=== PATIENT | female | born 1955 | race Asian ===

== ENCOUNTER 2023-09-06 09:47 | Emergency (ER) | payer OTHER, MEDICAID ==
[~2023-09-06] VITALS: Ht 152.4 cm; Wt 77.0 kg
[2023-09-06] MEDS ORDERED: SODIUM CHLORIDE 0.9% 1,000 ML IV ONE (10:45)
[2023-09-06 11:32] LABS: Basophils # (auto) 0.1 10 ^3/uL (0-0.2); Basophils % (auto) 0.6 % (0.0-2.0); Eosinophils # (auto) 0.1 10 ^3/uL (0-0.8); Eosinophils % (auto) 0.4 % (0.0-7.0); Hematocrit 48.1 % (36.0-46.0); Hemoglobin 15.9 g/dL (12.2-16.2); Lymphocytes # (auto) 1.4 10 ^3/uL (0.4-5.4); Mean Corpuscular Hemoglobin 28.4 pg (28.0-32.0); Mean Corpuscular Hgb Conc. 33.1 g/dL (32.0-36.0); Mean Corpuscular Volume 85.8 fL (80.0-100.0); Monocytes # (auto) 1.1 10 ^3/uL (0-1.3); Monocytes % (auto) 6.3 % (0.0-12.0); Neutrophils # (auto) 15.3 10 ^3/uL (1.6-8.6); Neutrophils % (auto) 84.7 % (37.0-80.0); Red Cell Distribution Width 13.1 % (11.8-14.3)
[2023-09-06 11:50] LABS: Chloride 104 mmol/L (98-107); Potassium 4.2 mmol/L (3.5-5.1); Sodium 140 mmol/L (136-145)
[2023-09-06 11:51] LABS: Anion Gap 7 (5-15); Carbon Dioxide 29 mmol/L (20-30)
[2023-09-06 11:52] LABS: Calcium 9.7 mg/dL (8.5-10.1)
[2023-09-06 11:54] LABS: Urine Bacteria FEW /hpf (None Seen); Urine Blood Negative /uL (Negative); Urine Clarity Clear (Clear); Urine Color Yellow (Yellow); Urine Mucus FEW (None Seen); Urine Protein, UAD TRACE (Negative); Urine Specific Gravity 1.014 (1.001-1.035); Urine Urobilinogen Normal (Negative); Urine WBC 3 /hpf (0 - 5); Urine pH 7.5 (5.0-8.0)
[2023-09-06 11:57] LABS: BUN/Creatinine Ratio 15.1 (10.0-20.0); Blood Urea Nitrogen 13 mg/dL (9-23); Glucose 114 mg/dL (74-106)
[2023-09-06] MEDS ORDERED: ALBUTEROL SULF 2.5 MG/0.5ML(0.5%) NEB SOLN NEB ONE (12:15)
[2023-09-06] MEDS ORDERED: AZITHROMYCIN 500MG/ 250ML 250 ML IV ONE (12:15)
[2023-09-06] MEDS ORDERED: IPRATROPIUM BROM 0.5 MG/2.5ML INH SOL NEB ONE (12:15)
[2023-09-06] MEDS ORDERED: DEXT1SYP9 PO (15:15)
[2023-09-06] MEDS ORDERED: SPIR25TA PO (15:15)
[2023-09-06] MEDS ORDERED: DOXY100C PO (15:15)
[2023-09-06] MEDS ORDERED: FURO1TAB33 PO (15:15)
[2023-09-06 16:31] VITALS: BP 140/84; PULSE 75; RESP 19; TEMP 98.2; O2SAT 98
== END 2023-09-06 16:37 | disposition home or self-care (01) ==
LOC: EDBD 09:47 → ER 09:47
DX: R06.02 Shortness of breath (principal); D72.828 Other elevated white blood cell count; J81.1 Chronic pulmonary edema; E11.9 Type 2 diabetes mellitus without complications; I10 Essential (primary) hypertension; Z90.710 Acquired absence of both cervix and uterus; Z86.73 Personal history of transient ischemic attack (TIA), and cerebral infarction without residual deficits
CPT/HCPCS: 36415; 71045; 80048; 81001; 84484; 85025; 93005; 94640; 96361; 96365; 96366; 99285; J0456; J7030; J7644

== ENCOUNTER 2025-02-22 00:42 | Emergency (ER) | payer OTHER, MEDICAID ==
[~2025-02-22] VITALS: Ht 157.5 cm; Wt 72.6 kg
[~2025-02-22 00:42] MED LIST: DEXT1SYP9 PO; DOXY100C PO; FURO1TAB33 PO; SPIR25TA PO
[2025-02-22 01:20] VITALS: BP 173/104; RESP 17; TEMP 97.8; O2SAT 91
[2025-02-22] MEDS: NITROGLYCERIN 0.4 MG SL TAB SL ONE (01:37)
[2025-02-22 01:45] VITALS: PULSE 61
--- NOTE | 2025-02-22 01:45 | ED.PDOC ---
History of Present Illness HPI Comments 69-year-old female who is brought in by ambulance for complaint of nonradiating, left-sided chest pain. Patient endorses on sudden unprovoked onset of pain at around 11:00 p.m., last night. Only history of CVA, DM type II, and HTN. She denies having any shortness of breath, nausea, vomiting, fever, chills, further associated symptoms. Per EMS report, patient's vitals were stable and within normal limits, with the exception of patient being hypertensive and having a glucose of 229. Chief Complaint: Chest Pain Time Seen by MD: 01:30 Reviewed Notes: Nurses Notes, Transformer Mechanic Notes, Medications, Allergies Allergies: Coded Allergies: NO KNOWN ALLERGIES (Unverified , 09/06/23) Home Meds Active Scripts Dextromethorphan-Guaifenesin (Robitussin-Dm) 10 Ml Sr, 10 ML PO TID for 10 Days, #180 SYP Prov:PONCHO PATINO MD 09/06/23 Spironolactone (Aldactone) 25 Mg Tab, 1 TAB PO DAILY for 5 Days, #5 TAB 1 Refill Prov:PONCHO PATINO MD 09/06/23 Furosemide (Lasix) 20 Mg Tb, 1 TAB PO DAILY for 5 Days, #5 TAB 1 Refill Prov:PONCHO PATINO MD 09/06/23 Doxycycline Hyclate (Vibramycin) 100 Mg Cap, 1 CAP PO BID for 10 Days, #20 CAP Prov:PONCHO PATINO MD 09/06/23 Information Source: Patient, Emergency Med Personnel Mode of Arrival: EMS Severity: Moderate Timing: Hours Duration: Since onset Prehospital treatment: 12 Lead EKG, Accucheck (229), Qual Research Manager Past Medical History PAST MEDICAL HISTORY: CVA, DM (Type II), HTN Surgical History: Hysterectomy MACHINE TESTER History: No Pertinent MACHINE TESTER History Family History Family History: Unknown Social History Smoker: Non-Smoker Alcohol: Denies ETOH Use Drugs: Denies Drug Use Lives In: Home All Other Systems: Reviewed and Negative (Comprehensive systems review obtained and negative except for what is stated in the HPI.) Physical Exam General Appearance: No Apparent Distress, Normal HEENT: Normal ENT Inspection, Pharynx Normal, TMs Normal Neck: Full Range of Motion, Non-Tender, Normal, Normal Inspection Respiratory: Chest Non-Tender, Lungs Clear, No Accessory Muscle Use, No Respiratory Distress, Normal Breath Sounds Cardiovascular: No Edema, No JVD, No Murmur, No Gallop, Normal Peripheral Pulses, Regular Rate/Rhythm Breast Exam: Deferred Gastrointestinal: No Organomegaly, Non Tender, No Pulsatile Mass, Normal Bowel Sounds, Soft Genitalia: Deferred Pelvic: Deferred Rectal: Deferred Extremities: No calf tenderness, Normal capillary refill, Normal inspection, Normal range of motion, Non-tender, No pedal edema Musculoskeletal : Apperance: Normal Neurologic: Alert, court recorder II-XII nml as Tested, No Motor Deficits, Normal Affect, Normal Mood, No Sensory Deficits Cerebellar Function: Normal Reflexes: Normal Skin: Dry, Normal Color, Warm Lymphatic: No Adenopathy Was a procedure done? Was a procedure done?: No EKG EKG #1: Pulse Rate (adult): 72 Rosie: Normal Cardiac Rhythm: NSR Block: None Hypertrophy: None ST: Normal EKG #2: Pulse Rate (adult): 61 Rosie: Normal Cardiac Rhythm: NSR Block: None Hypertrophy: None ST: Normal Differential Dx Considerations may include: UT, PE, ACS, URI, pneumonia, anxiety, angina, viral syndrome, costochondritis, among others X-Ray, Labs, Meds, VS Vital Signs Date Time Temp Pulse Resp B/P (MAP) Pulse Ox O2 Delivery O2 Flow Rate FiO2 02/22/25 01:45 61 02/22/25 01:40 61 02/22/25 01:37 173/104 02/22/25 01:20 97.8 67 17 173/104 (127) 91 97.8 02/22/25 00:53 98.6 72 16 172/72 (105) 95 98.6 02/22/25 00:45 72 Lab Test 02/22/25 02:48 02/22/25 02:30 02/22/25 01:58 Range/Units Troponin I High Sensitivity Pending 8 </=34 ng/L Urine Color Colorless Yellow Urine Clarity Clear Clear Urine pH 7.0 5.0-9.0 Urine Specific [place] 1.008 1.001-1.035 Urine Protein Negative Negative Urine Ketones Negative Negative Urine Blood Negative Negative /uL Urine Nitrite Negative Negative Urine Bilirubin Negative Negative Urine Urobilinogen Normal Negative mg/dL Urine Leukocyte Esterase Trace Negative /uL Urine RBC 1 0 - 4 /hpf Urine Microscopic WBC 2 0-5 /HPF Urine Squamous Epithelial Cells Few <5 /hpf Urine Bacteria Mod H None Seen /hpf Urine Glucose 4+ H Normal mg/dL White Blood Count 9.2 4.4-10.8 10^3/uL Red Blood Count 5.63 H 4.0-5.20 10^6/uL Hemoglobin 16.2 12.2-16.2 g/dL Hematocrit 48.2 H 36.0-46.0 % Mean Corpuscular Volume 85.6 80.0-100.0 fL Mean Corpuscular Hemoglobin 28.8 28.0-32.0 pg Mean Corpuscular Hemoglobin Concent 33.6 32.0-36.0 g/dL Red Cell Distribution Width 14.4 H 11.8-14.3 % Platelet Count 278 140-450 10^3/uL Mean Platelet Volume 8.2 6.9-10.8 fL Neutrophils (%) (Auto) 63.2 37.0-80.0 % Lymphocytes (%) (Auto) 25.1 10.0-50.0 % Monocytes (%) (Auto) 7.3 0.0-12.0 % Eosinophils (%) (Auto) 3.7 0.0-7.0 % Basophils (%) (Auto) 0.7 0.0-2.0 % Neutrophils # (Auto) 5.8 1.6-8.6 10 ^3/uL Lymphocytes # (Auto) 2.3 0.4-5.4 10 ^3/uL Monocytes # (Auto) 0.7 0-1.3 10 ^3/uL Eosinophils # (Auto) 0.3 0-0.8 10 ^3/uL Basophils # (Auto) 0.1 0-0.2 10 ^3/uL Nucleated Red Blood Cells 0.2 % Sodium Level 145 136-145 mmol/L Potassium Level 4.4 3.5-5.1 mmol/L Chloride Level 106 98-107 mmol/L Carbon Dioxide Level 28 20-31 mmol/L Anion Gap 11 5-15 Blood Urea Nitrogen 13 9-23 mg/dL Creatinine 0.84 0.550-1.02 mg/dL Glomerular Filtration Rate Calc 76 >90 mL/min BUN/Creatinine Ratio 15.5 10.0-20.0 Serum Glucose 270 H 74-106 mg/dL Calcium Level 9.5 8.7-10.4 mg/dL B-Type Natriuretic Peptide 29.62 0-100 pg/mL Current Medications Medications (Trade) Dose Ordered Sig/Tomasa Route Start Time Stop Time Status Last Admin Nitroglycerin (Ntrostat Sublingual) 0.4 mg ONCE ONCE SL 02/22/25 01:15 02/22/25 01:16 DC 02/22/25 01:37 Time of 1ST Reevaluation: 01:50 Reevaluation 1ST: Unchanged Patient Education/Counseling: Diagnosis, Treatment Family Education/Counseling: No Family Present Additional Information Previous visits reviewed: September 06, 2023 encounter for shortness of breath The following tests were ordered, and results were reviewed by me: Troponin, urinalysis, chest x-ray, CBC, BMP, BNP, EKG Additional Information was gathered from interviewing the following independent historians: EMS I reviewed and agreed with the following test results read by other providers: Chest x-ray I discussed treatment and results with medical personnel and: patient SEPSIS Sepsis Screen Date sepsis recognized/suspect: Feb 22, 2025 Time Sepsis recognized/suspect: 56 Recent Procedure: No On Antibiotic Therapy: No Respiratory Rate >20: No Heart Rate >90: No Temp<36 C (96.8 F) or >38.3 C: No SBP <90 or MAP <65 mmHG: No New Acute Mental Status Change: No Is the patient on CPAP, BIPAP,: No Physician Orders Electrocardigram (02/22/25 04:12) Chest Portable (02/22/25 01:14) Troponin-I Hs (02/22/25 02:14) Troponin-I Hs (02/22/25 04:14) Clonidine Hcl Tablet (Catapres Tablet) (02/22/25 03:15) Vital Signs Date Time Temp Pulse Resp B/P (MAP) Pulse Ox O2 Delivery O2 Flow Rate FiO2 02/22/25 01:45 61 02/22/25 01:40 61 02/22/25 01:37 173/104 02/22/25 01:20 97.8 67 17 173/104 (127) 91 97.8 02/22/25 00:53 98.6 72 16 172/72 (105) 95 98.6 02/22/25 00:45 72 Laboratory Tests Test 02/22/25 01:58 White Blood Count 9.2 10^3/uL (4.4-10.8) Medications Medications Dose Ordered Sig/Tomasa Route Start Time Stop Time Status Last Admin Dose Admin Nitroglycerin 0.4 mg ONCE ONCE SL 02/22/25 01:15 02/22/25 01:16 DC 02/22/25 01:37 Departure 1 Departure Time of Disposition: 03:13 (Patient presented with chest pain that was concerning for possible STEMI, ACS, PE, Pneumonia, Muscle Strain, COPD, Dissection. Data: 1. I ordered and reviewed the result of at least 3 labs including a CBC, BMP, and Troponin. 2. I independently interpreted the following tests: EKG which shows normal sinus rhythm and Chest X-ray which shows a benign chest.Risk:This patient presented with a high risk of morbidity due to further diagnostic testing or treatment and may suffer from an acute cardiac or respiratory disorder. After review of all the data patient is unlikely to have a pe , dissection, and is low risk for acs. Patient is stable at this time.Workup so far is benign and patient will be discharged with outpatient followup. ) Impression: Primary Impression: Acute chest pain Disposition: HOME / SELF CARE / HOMELESS Condition: Stable Additional Instructions: You presented today with chest pain. Your workup today was benign including labs, troponin, EKG, chest x-ray. Your pain may be from musculoskeletal strain, acid reflux, anxiety, or many other factors. It is important to follow up with your regular doctor within 1 week. If your symptoms worsen or you have any other concerns please return to the emergency room. Critical Care Note Critical Care Time?: No Stability Stability form required: No Heart Score Heart Score: Heart Score Response (Comments) Value History Slightly Suspicious 0 EKG Normal 0 Age >65 2 Risk Factors 1 or 2 risk factors 1 Troponin Normal limit 0 Total 3 I personally scribed for TERRI BALDERAS MD ([email or web address]) on 02/22/25 at 01:45. Electronically submitted by Nicanor Miller [email or web address]). TERRI BALDERAS MD Feb 22, 2025 01:45
[2025-02-22 01:46] LABS: Urine Bacteria MOD /hpf (None Seen); Urine Blood Negative /uL (Negative); Urine Clarity Clear (Clear); Urine Color Colorless (Yellow); Urine Protein, UAD Negative (Negative); Urine Specific Gravity 1.008 (1.001-1.035); Urine Squamous Epithelial Cell FEW /hpf (<5); Urine Urobilinogen Normal (Negative); Urine WBC 2 /HPF (0-5)
[2025-02-22 02:10] LABS: Basophils # (auto) 0.1 10 ^3/uL (0-0.2); Basophils % (auto) 0.7 % (0.0-2.0); Eosinophils # (auto) 0.3 10 ^3/uL (0-0.8); Eosinophils % (auto) 3.7 % (0.0-7.0); Hematocrit 48.2 % (36.0-46.0); Hemoglobin 16.2 g/dL (12.2-16.2); Lymphocytes # (auto) 2.3 10 ^3/uL (0.4-5.4); Lymphocytes % (auto) 25.1 % (10.0-50.0); Mean Corpuscular Hemoglobin 28.8 pg (28.0-32.0); Mean Corpuscular Hgb Conc. 33.6 g/dL (32.0-36.0); Mean Corpuscular Volume 85.6 fL (80.0-100.0); Monocytes # (auto) 0.7 10 ^3/uL (0-1.3); Monocytes % (auto) 7.3 % (0.0-12.0); Neutrophils # (auto) 5.8 10 ^3/uL (1.6-8.6); Neutrophils % (auto) 63.2 % (37.0-80.0); Nucleated Red Blood Cells % 0.2 %; Platelet Count (auto) 278 10^3/uL (140-450); Red Blood Cells 5.63 10^6/uL (4.0-5.20); Red Cell Distribution Width 14.4 % (11.8-14.3); White Blood Cell 9.2 10^3/uL (4.4-10.8)
[2025-02-22 02:24] LABS: Chloride 106 mmol/L (98-107); Potassium 4.4 mmol/L (3.5-5.1)
[2025-02-22 02:25] LABS: Anion Gap 11 (5-15); Calcium 9.5 mg/dL (8.7-10.4); Carbon Dioxide 28 mmol/L (20-31)
[2025-02-22 02:30] LABS: BUN/Creatinine Ratio 15.5 (10.0-20.0); Blood Urea Nitrogen 13 mg/dL (9-23)
--- NOTE | 2025-02-22 02:34 | DVH ---
CHEST RADIOGRAPH Indication: chest pain Technique: Single frontal view of the chest was obtained COMPARISON: XY CHEST PORTABLE on DOS: 09/06/23 FINDINGS: Lines and Tubes: None Lungs: Clear Pleura: No effusion. No pneumothorax. Cardiomediastinal contours: Unremarkable Bones: Unremarkable IMPRESSION: 1. No acute disease.
[2025-02-22 02:39] LABS: Glucose 270 mg/dL (74-106); Sodium 145 mmol/L (136-145)
--- NOTE | 2025-02-22 03:05 | ECG ---
[facility] Test Date: 2025-02-22 Test Time: 00:45:38 Pat Name: GREGORIO NIELSEN Department: ED Room: Gender: F [employer]: ED : 1955 Requested By: TERRI BALDERAS Order Number: [id number] Reading MD: Antonio West Measurements Intervals [place] Rate: 72 P: 17 IL: 197 QRS: 42 QRSD: 90 T: 57 QT: 410 QTc: 449 Interpretive Statements Sinus rhythm Low voltage, precordial leads Electronically Signed On 02-22-2025 22:56:48 PDT by Antonio West Please click the below link to view image of tracing.
--- NOTE | 2025-02-22 03:06 | ECG ---
[facility] Test Date: 2025-02-22 Test Time: 01:40:23 Pat Name: GREGORIO NIELSEN Department: ED Room: Gender: F Hand Lacer: XENA : 1955 Requested By: TERRI BALDERAS Order Number: [id number] Reading MD: Antonio West Measurements Intervals [place] Rate: 61 P: 47 SD: 190 QRS: 49 QRSD: 91 T: 74 QT: 461 QTc: 465 Interpretive Statements Sinus rhythm Low voltage, precordial leads Electronically Signed On 02-22-2025 22:56:55 PDT by Antonio West Please click the below link to view image of tracing.
[2025-02-22] MEDS: cloNIDine HCL 0.1 MG TAB PO ONE (03:32)
== END 2025-02-22 05:10 | disposition home or self-care (01) ==
LOC: EDBD 00:42 → ER 00:42
DX: R07.89 Other chest pain (principal); I10 Essential (primary) hypertension; E11.9 Type 2 diabetes mellitus without complications; R06.2 Wheezing; Z79.899 Other long term (current) drug therapy; Z86.73 Personal history of transient ischemic attack (TIA), and cerebral infarction without residual deficits; Z90.710 Acquired absence of both cervix and uterus
CPT/HCPCS: 36415; 71045; 80048; 81001; 83880; 84484; 85025; 93005